=== PATIENT | male | born 1975 | race Caucasian/White ===

== ENCOUNTER 2016-08-28 07:30 | Emergency (ER) | payer MEDICARE, MEDICAID ==
[~2016-08-28 07:30] MED LIST: /DIVA50TA PO; ALBU17IN2; AUGM875T27 PO; DEPA250T3; DEPA500T; DEPA500T2; MILKSUS; PERC5TAB6 PO; PERC5TAB8; PROV90AE; SERO200T PO; ZYPR10TA
[2016-08-28] MEDS ORDERED: ACETAMINOPHEN 325 MG TAB As Ordered ONE (08:51)
--- NOTE | 2016-08-28 10:00 | EDDOCDS ---
Physician Documentation [facility] Name: Michael Patel Age: 41 yrs Sex: Male : 1975 Arrival Date: 08/28/2016 Time: 07:30 Bed TR8 Private MD: Disposition: 08/28/16 09:22 Discharged to Home/Self Care. Impression: Influenza due to other identified influenza virus - B. - Condition is Stable. - Discharge Instructions: Influenza Adult. - Medication Reconciliation form. - Follow up: Private Physician; When: Call to arrange an appointment; Reason: Wound/Symptom Recheck, Recheck today's complaints, Continuance of care. - Problem is new. - Symptoms have improved. - Notes: take tylenol as needed for pain. Historical: - Allergies: Prolixin (Epilepsy); Prozac (psychotic); - Home Meds: 1. Theraflu ExpressMax Cold Day 5-10-325 mg/15 mL oral liqd as needed (Last dose: 08/26/2016) - PMHx: Seizure Disorder; - PSHx: Cholecystectomy; Nephrectomy- Right; - Social history: Smoking status: Patient states was never smoker of tobacco. No barriers to communication noted, The patient speaks fluent Vietnamese, Speaks appropriately for age. - Family history: Not pertinent. - : The pt / caregiver states he / she is not on anticoagulants. Home medication list is obtained from the patient. - Exposure Risk Screening:: None identified. Vital Signs: 08/28 08:07 BP 136 / 75; Pulse 102; Resp 16; Temp 102.3(O); Pulse Ox 97% on R/A; Weight 165.56 kg / mlb1 365 lbs (M); Height 5 ft. 8 in. (172.72 cm) (M); Pain 8/10; 09:39 BP 131 / 80; Pulse 117; Resp 18; Temp 100.5(O); Pulse Ox 97% on R/A; Pain 8/10; dem1 08:07 Body Mass Index 55.50 (165.56 kg, 172.72 cm) mlb1 MDM: 08:39 Obtain sample by nasopharyngeal swab ordered. cc10 08:39 Acetaminophen Tablet 975 mg PO once ordered. cc10 08:40 -Influenza A&B Rapid Antigen - Nose Ordered. EDMS 09:21 Financial registration complete. mm15 09:21 -Influenza A&B Rapid Antigen - Nose Reviewed. cc10 09:43 [facility] Payment Agreement was scanned into [employer] and attached to record. mm15 Administered Medications: 08:56 Drug: Acetaminophen 975 mg [acetaminophen 325 mg tablet (3 tabs)] Route: PO; dls Signatures: Dispatcher [employer] Dayami Hanks RN RN dls Mike Rubi RN RN mlb1 Gualberto Avelar mm15 Edison Cabrales PA-C PALisbeth cc10 The chart was reviewed and I authenticate all verbal orders and agree with the evaluation and treatment provided.Attachments: 09:43 [facility] Payment Agreement mm15 MTDD
--- NOTE | 2016-08-28 10:00 | EDDOCDS ---
Nurse's Notes [facility] Name: Michael Patel Age: 41 yrs Sex: Male : 1975 Arrival Date: 08/28/2016 Time: :30 Bed TR8 Private MD: Diagnosis: Influenza due to other identified influenza virus-B Presentation: 08/28 08:04 Presenting complaint: Patient states: Body aches, fever, with N/V began six days ago. mlb1 Adult Sepsis Screening: The patient does not have new or worsening altered mentation. Patient's respiratory rate is less than 22. Systolic blood pressure is greater than 100. Patient has a qSOFA score of 0- Negative Sepsis Screen. Suicide/Homicide risk assessment- the patient denies having any suicidal and/or homicidal ideations and does not present with any other emotional, behavioral or mental health complaints. 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 Transition of care: patient was not received from another setting of care. 08:04 Acuity: CORTEZ Level 3 mlb1 08:04 Method Of Arrival: Walkin/Carried/Asstd mlb1 Triage Assessment: 08:07 General: Appears in no apparent distress, Behavior is cooperative. Pain: Location: "all mlb1 over" Pain currently is 8.5 out of 10 on a pain scale. HIV screening NA for this visit Offered previously. Respiratory: No deficits noted. GI: Reports. Historical: - Allergies: Prolixin (Epilepsy); Prozac (psychotic); - Home Meds: 1. Theraflu ExpressMax Cold Day 5-10-325 mg/15 mL oral liqd as needed (Last dose: 08/26/2016) - PMHx: Seizure Disorder; - PSHx: Cholecystectomy; Nephrectomy- Right; - Social history: Smoking status: Patient states was never smoker of tobacco. No barriers to communication noted, The patient speaks fluent Vincentian, Speaks appropriately for age. - Family history: Not pertinent. - : The pt / caregiver states he / she is not on anticoagulants. Home medication list is obtained from the patient. - Exposure Risk Screening:: None identified. Screenin:59 Screening information is obtained from the patient. Primary language is Vincentian. Fall dls risk: No risks identified. Assistance ADL's: requires no assistance with activities of daily living. Abuse/DV Screen: The patient / caregiver reports he/she is: not in a situation that causes fear, pain or injury. Nutritional screening: No deficits noted. Advance Directives: Currently, there is no health care proxy. There is no active DNR order. There is no living will. There is no Power of Communications Engineering Technician. Advance directive information has not previously been placed in an [facility] medical record. home support is adequate. Assessment: 08:57 General: Appears obese, uncomfortable, Behavior is anxious. Awake, alert, oriented. dls Skin warm and dry. Moves all extremities. Respirations unlabored. No apparent distress. The patient / caregiver is instructed regarding the plan of care and ED course. Pt states is able to tolerate po fluids and food but feels nauseated c/o mucus in throat and fever medicated pt po for fever nasal swab for influenza sent to lab.. Vital Signs: 08:07 BP 136 / 75; Pulse 102; Resp 16; Temp 102.3(O); Pulse Ox 97% on R/A; Weight 165.56 kg mlb1 (M); Height 5 ft. 8 in. (172.72 cm) (M); Pain 8/10; 09:39 BP 131 / 80; Pulse 117; Resp 18; Temp 100.5(O); Pulse Ox 97% on R/A; Pain 8/10; dem1 08:07 Body Mass Index 55.50 (165.56 kg, 172.72 cm) [facility] ED Course: 07:31 Patient visited by Sammie Dye, Reg. hs2 07:31 Patient moved to Waiting hs2 08:04 Patient visited by Mike Rubi RN. mlb1 08:04 Triage Initiated mlb1 08:10 Patient visited by Mike Rubi RN. mlb1 08:37 Patient moved to I4 / M4 mlb1 08:56 -Influenza A&B Rapid Antigen - Nose Sent. dls 08:59 Patient has correct armband on for positive identification. Bed in low position. Call dls light in reach. 09:10 Patient visited by Dayami Breen RN. dls 09:13 Edison Cabrales PA-C [facility]. cc10 09:13 Merrill Dumas MD is Attending Physician. cc10 09:18 Patient visited by Edison Cabrales PA-C. cc10 09:18 Patient visited by Edison Cabrales PA-C. cc10 09:29 No IV's were initiated during this patient's visit. No procedures done that require dls assistance. 09:40 Patient visited by Jadon Black. dem1 09:40 Patient moved to [facility] dem1 09:43 [facility] Payment Agreement was scanned into [employer] and attached to record. mm15 Administered Medications: 08:56 Drug: Acetaminophen 975 mg [acetaminophen 325 mg tablet (3 tabs)] Route: PO; dls Order Results: Lab Order: -Influenza A&B Rapid Antigen - Nose; SPEC'M 08/28/16 08:53 Test: INFLUENZA A RAPID SCR by ICA; Value: INFLUENZA A RESULTS NEGATIVE; Status: F Test: INFLUENZA A RAPID SCR by ICA; Value: Comments:; Status: F Test: INFLUENZA B RAPID SCR by ICA; Value: INFLUENZA B RESULTS POSITIVE; Abnormal: Abnormal; Status: F Test Note: ; The Influenza test is a direct rapid immunoassay for the qualitative detection of Influenza viral antigen. Cell culture (Viral Culture) testing should be considered to confirm NEGATIVE results and to assist in detecting other viruses that can provide similar clinical symptoms. Please contact the lab within 24 hours ([phone]) if confirmatory testing is desired. Outcome: 09:22 Discharge ordered by Provider. cc10 09:29 The following High Risk Discharge criteria are identified: None. Discharged to home dls ambulatory. Condition: stable. Discharge instructions given to patient, Instructed on discharge instructions, follow up and referral plans. Demonstrated understanding of instructions. No special radiology studies were completed. 09:29 Discharge Assessment: Patient awake, alert and oriented x 3. No cognitive and/or dls functional deficits noted. Patient verbalized understanding of disposition instructions. patient administered narcotics - no. The following High Risk Discharge criteria are identified: None. Discharged to home ambulatory. Property sent home with patient. 10:00 Patient left the ED. dls Signatures: Dayami Breen RN RN dls Barney, Michael B, RN RN mlb1 Jadon Black dem1 Gualberto Avelar mm15 Edison Cabrales PA-C PA-C cc10 Rick Dyeary, Reg Reg hs2 MTDD
--- NOTE | 2016-08-30 11:00 | EDDOCDS ---
Physician Documentation [facility] Name: Michael Patel Age: 41 yrs Sex: Male : 1975 Arrival Date: 08/28/2016 Time: 07:30 Bed TR8 Private MD: Disposition: 08/28/16 09:22 Discharged to Home/Self Care. Impression: Influenza due to other identified influenza virus - B. - Condition is Stable. - Discharge Instructions: Influenza Adult. - Medication Reconciliation form. - Follow up: Private Physician; When: Call to arrange an appointment; Reason: Wound/Symptom Recheck, Recheck today's complaints, Continuance of care. - Problem is new. - Symptoms have improved. - Notes: take tylenol as needed for pain. Historical: - Allergies: Prolixin (Epilepsy); Prozac (psychotic); - Home Meds: 1. Theraflu ExpressMax Cold Day 5-10-325 mg/15 mL oral liqd as needed (Last dose: 08/26/2016) - PMHx: Seizure Disorder; - PSHx: Cholecystectomy; Nephrectomy- Right; - Social history: Smoking status: Patient states was never smoker of tobacco. No barriers to communication noted, The patient speaks fluent Albanian, Speaks appropriately for age. - Family history: Not pertinent. - : The pt / caregiver states he / she is not on anticoagulants. Home medication list is obtained from the patient. - Exposure Risk Screening:: None identified. Vital Signs: 08/28 08:07 BP 136 / 75; Pulse 102; Resp 16; Temp 102.3(O); Pulse Ox 97% on R/A; Weight 165.56 kg / mlb1 365 lbs (M); Height 5 ft. 8 in. (172.72 cm) (M); Pain 8/10; 09:39 BP 131 / 80; Pulse 117; Resp 18; Temp 100.5(O); Pulse Ox 97% on R/A; Pain 8/10; dem1 08:07 Body Mass Index 55.50 (165.56 kg, 172.72 cm) mlb1 MDM: 08:39 Obtain sample by nasopharyngeal swab ordered. cc10 08:39 Acetaminophen Tablet 975 mg PO once ordered. cc10 08:40 -Influenza A&B Rapid Antigen - Nose Ordered. EDMS 09:21 Financial registration complete. mm15 09:21 -Influenza A&B Rapid Antigen - Nose Reviewed. cc10 09:43 [facility] Payment Agreement was scanned into [employer] and attached to record. mm15 16:51 T-Sheet-- Draft Copy was scanned into [employer] and attached to record. klr Administered Medications: 08:56 Drug: Acetaminophen 975 mg [acetaminophen 325 mg tablet (3 tabs)] Route: PO; dls Signatures: Dispatcher [employer] Dayami Hanks RN RN dls Mike Rubi RN RN mlb1 Gualberto Avelar mm15 Edison Cabrales, PA-C PA-C cc10 Smita Gomez klr The chart was reviewed and I authenticate all verbal orders and agree with the evaluation and treatment provided.Attachments: 09:43 [facility] Payment Agreement mm15 16:51 T-Sheet-- Draft Copy klr Chart Complete MTDD
--- NOTE | 2016-08-30 11:00 | EDDOCDS ---
Physician Documentation [facility] Name: Michael Patel Age: 41 yrs Sex: Male : 1975 Arrival Date: 08/28/2016 Time: 07:30 Bed TR8 Private MD: Disposition: 08/28/16 09:22 Discharged to Home/Self Care. Impression: Influenza due to other identified influenza virus - B. - Condition is Stable. - Discharge Instructions: Influenza Adult. - Medication Reconciliation form. - Follow up: Private Physician; When: Call to arrange an appointment; Reason: Wound/Symptom Recheck, Recheck today's complaints, Continuance of care. - Problem is new. - Symptoms have improved. - Notes: take tylenol as needed for pain. Historical: - Allergies: Prolixin (Epilepsy); Prozac (psychotic); - Home Meds: 1. Theraflu ExpressMax Cold Day 5-10-325 mg/15 mL oral liqd as needed (Last dose: 08/26/2016) - PMHx: Seizure Disorder; - PSHx: Cholecystectomy; Nephrectomy- Right; - Social history: Smoking status: Patient states was never smoker of tobacco. No barriers to communication noted, The patient speaks fluent Armenian, Speaks appropriately for age. - Family history: Not pertinent. - : The pt / caregiver states he / she is not on anticoagulants. Home medication list is obtained from the patient. - Exposure Risk Screening:: None identified. Vital Signs: 08/28 08:07 BP 136 / 75; Pulse 102; Resp 16; Temp 102.3(O); Pulse Ox 97% on R/A; Weight 165.56 kg / mlb1 365 lbs (M); Height 5 ft. 8 in. (172.72 cm) (M); Pain 8/10; 09:39 BP 131 / 80; Pulse 117; Resp 18; Temp 100.5(O); Pulse Ox 97% on R/A; Pain 8/10; dem1 08:07 Body Mass Index 55.50 (165.56 kg, 172.72 cm) mlb1 MDM: 08:39 Obtain sample by nasopharyngeal swab ordered. cc10 08:39 Acetaminophen Tablet 975 mg PO once ordered. cc10 08:40 -Influenza A&B Rapid Antigen - Nose Ordered. EDMS 09:21 Financial registration complete. mm15 09:21 -Influenza A&B Rapid Antigen - Nose Reviewed. cc10 09:43 [facility] Payment Agreement was scanned into [employer] and attached to record. mm15 16:51 T-Sheet-- Draft Copy was scanned into [employer] and attached to record. klr Administered Medications: 08:56 Drug: Acetaminophen 975 mg [acetaminophen 325 mg tablet (3 tabs)] Route: PO; dls Signatures: Dispatcher [employer] Dayami Hanks RN RN dls Mike Rubi RN RN mlb1 Gualberto Avelar mm15 Edison Cabrales, PA-C PA-C cc10 Smita Gomez klr The chart was reviewed and I authenticate all verbal orders and agree with the evaluation and treatment provided.Attachments: 09:43 [facility] Payment Agreement mm15 16:51 T-Sheet-- Draft Copy klr Chart Complete MTDD
--- NOTE | 2016-08-30 11:00 | EDDOCDS ---
Nurse's Notes [facility] Name: Michael Patel Age: 41 yrs Sex: Male : 1975 Arrival Date: 08/28/2016 Time: :30 Bed TR8 Private MD: Diagnosis: Influenza due to other identified influenza virus-B Presentation: 08/28 08:04 Presenting complaint: Patient states: Body aches, fever, with N/V began six days ago. mlb1 Adult Sepsis Screening: The patient does not have new or worsening altered mentation. Patient's respiratory rate is less than 22. Systolic blood pressure is greater than 100. Patient has a qSOFA score of 0- Negative Sepsis Screen. Suicide/Homicide risk assessment- the patient denies having any suicidal and/or homicidal ideations and does not present with any other emotional, behavioral or mental health complaints. 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 Transition of care: patient was not received from another setting of care. 08:04 Acuity: CORTEZ Level 3 mlb1 08:04 Method Of Arrival: Walkin/Carried/Asstd mlb1 Triage Assessment: 08:07 General: Appears in no apparent distress, Behavior is cooperative. Pain: Location: "all mlb1 over" Pain currently is 8.5 out of 10 on a pain scale. HIV screening NA for this visit Offered previously. Respiratory: No deficits noted. GI: Reports. Historical: - Allergies: Prolixin (Epilepsy); Prozac (psychotic); - Home Meds: 1. Theraflu ExpressMax Cold Day 5-10-325 mg/15 mL oral liqd as needed (Last dose: 08/26/2016) - PMHx: Seizure Disorder; - PSHx: Cholecystectomy; Nephrectomy- Right; - Social history: Smoking status: Patient states was never smoker of tobacco. No barriers to communication noted, The patient speaks fluent German, Speaks appropriately for age. - Family history: Not pertinent. - : The pt / caregiver states he / she is not on anticoagulants. Home medication list is obtained from the patient. - Exposure Risk Screening:: None identified. Screenin:59 Screening information is obtained from the patient. Primary language is German. Fall dls risk: No risks identified. Assistance ADL's: requires no assistance with activities of daily living. Abuse/DV Screen: The patient / caregiver reports he/she is: not in a situation that causes fear, pain or injury. Nutritional screening: No deficits noted. Advance Directives: Currently, there is no health care proxy. There is no active DNR order. There is no living will. There is no Power of Magnet Maker. Advance directive information has not previously been placed in an [facility] medical record. home support is adequate. Assessment: 08:57 General: Appears obese, uncomfortable, Behavior is anxious. Awake, alert, oriented. dls Skin warm and dry. Moves all extremities. Respirations unlabored. No apparent distress. The patient / caregiver is instructed regarding the plan of care and ED course. Pt states is able to tolerate po fluids and food but feels nauseated c/o mucus in throat and fever medicated pt po for fever nasal swab for influenza sent to lab.. Vital Signs: 08:07 BP 136 / 75; Pulse 102; Resp 16; Temp 102.3(O); Pulse Ox 97% on R/A; Weight 165.56 kg mlb1 (M); Height 5 ft. 8 in. (172.72 cm) (M); Pain 8/10; 09:39 BP 131 / 80; Pulse 117; Resp 18; Temp 100.5(O); Pulse Ox 97% on R/A; Pain 8/10; dem1 08:07 Body Mass Index 55.50 (165.56 kg, 172.72 cm) [facility] ED Course: 07:31 Patient visited by Sammie Dye, Reg. hs2 07:31 Patient moved to Waiting hs2 08:04 Patient visited by Mike Rubi RN. mlb1 08:04 Triage Initiated mlb1 08:10 Patient visited by Mike Rubi RN. mlb1 08:37 Patient moved to I4 / M4 mlb1 08:56 -Influenza A&B Rapid Antigen - Nose Sent. dls 08:59 Patient has correct armband on for positive identification. Bed in low position. Call dls light in reach. 09:10 Patient visited by Dayami Breen RN. dls 09:13 Edison Cabrales PA-C is [facility]. cc10 09:13 Merrill Dumas MD is Attending Physician. cc10 09:18 Patient visited by Edison Cabrales PA-C. cc10 09:18 Patient visited by Edison Cabrales PA-C. cc10 09:29 No IV's were initiated during this patient's visit. No procedures done that require dls assistance. 09:40 Patient visited by Jadon Black. dem1 09:40 Patient moved to [facility] dem1 09:43 [facility] Payment Agreement was scanned into [employer] and attached to record. mm15 16:51 T-Sheet-- Draft Copy was scanned into [employer] and attached to record. klr Administered Medications: 08:56 Drug: Acetaminophen 975 mg [acetaminophen 325 mg tablet (3 tabs)] Route: PO; dls Order Results: Lab Order: -Influenza A&B Rapid Antigen - Nose; SPEC'M 08/28/16 08:53 Test: INFLUENZA A RAPID SCR by ICA; Value: INFLUENZA A RESULTS NEGATIVE; Status: F Test: INFLUENZA A RAPID SCR by ICA; Value: Comments:; Status: F Test: INFLUENZA B RAPID SCR by ICA; Value: INFLUENZA B RESULTS POSITIVE; Abnormal: Abnormal; Status: F Test Note: ; The Influenza test is a direct rapid immunoassay for the qualitative detection of Influenza viral antigen. Cell culture (Viral Culture) testing should be considered to confirm NEGATIVE results and to assist in detecting other viruses that can provide similar clinical symptoms. Please contact the lab within 24 hours ([phone]) if confirmatory testing is desired. Outcome: 09:22 Discharge ordered by Provider. cc10 09:29 The following High Risk Discharge criteria are identified: None. Discharged to home dls ambulatory. Condition: stable. Discharge instructions given to patient, Instructed on discharge instructions, follow up and referral plans. Demonstrated understanding of instructions. No special radiology studies were completed. 09:29 Discharge Assessment: Patient awake, alert and oriented x 3. No cognitive and/or dls functional deficits noted. Patient verbalized understanding of disposition instructions. patient administered narcotics - no. The following High Risk Discharge criteria are identified: None. Discharged to home ambulatory. Property sent home with patient. 10:00 Patient left the ED. dls Signatures: Dayami Breen RN RN dls Mike Rubi RN RN mlb1 Jadon Black dem1 Gualberto Avelar mm15 Edison Cabrales PA-C PA-C cc10 Sammie Dye, [facility] Reg hs2 RedSmita daugherty Chart Complete SANTID
== END 2016-08-28 10:00 | disposition home or self-care (01) ==
LOC: M ED 07:30
DX: J10.1 Influenza due to other identified influenza virus with other respiratory manifestations (principal); G40.909 Epilepsy, unspecified, not intractable, without status epilepticus; Z88.8 Allergy status to other drugs, medicaments and biological substances

== ENCOUNTER → 2016-11-02 | Outpatient (REF) | payer MEDICARE, MEDICAID ==
[2016-11-02 14:30] LABS: ALBUMIN 3.4 GM/DL (3.2-5.2); ALBUMIN/GLOBULIN RATIO 0.97 (1.00-1.93); ALKALINE PHOSPHATASE 92 U/L (45-117); ALT/SGPT 59 U/L (12-78); ANION GAP 7 MEQ/L (8-16); AST/SGOT 35 U/L (15-37); BILIRUBIN,TOTAL 0.4 MG/DL (0.2-1.0); BLOOD UREA NITROGEN 11 MG/DL (7-18); CALCIUM LEVEL 8.8 MG/DL (8.5-10.1); CARBON DIOXIDE LEVEL 27 MEQ/L (21-32); CHLORIDE LEVEL 108 MEQ/L (98-107); CHOLESTEROL LEVEL 118 MG/DL (<200); CREATININE FOR GFR 0.98 MG/DL (0.70-1.30); GLOMERULAR FILTRATION RATE > 60.0 (>60); GLUCOSE, FASTING 97 MG/DL (70-105); MAGNESIUM LEVEL 2.5 MG/DL (1.8-2.4); POTASSIUM SERUM 4.4 MEQ/L (3.5-5.1); SODIUM LEVEL 142 MEQ/L (136-145); TOTAL PROTEIN 6.9 GM/DL (6.4-8.2); TRIGLYCERIDES LEVEL 90 MG/DL (<150)
== END ==
LOC: M LAB REF 12:10
PROVIDERS: ATTEND Nurse Practitioner Family
DX: Z13.220 Encounter for screening for lipoid disorders (principal); R56.9 Unspecified convulsions; Z13.228 Encounter for screening for other metabolic disorders

== ENCOUNTER 2016-12-23 23:04 | Emergency (ER) | payer MEDICARE, MEDICAID ==
[~2016-12-23] VITALS: Ht 170.2 cm; Wt 161.6 kg
[~2016-12-23 23:04] MED LIST changes: -AUGM875T27 PO; +AUGM875T28 PO; +PERC5TAB12 PO; -PERC5TAB6 PO
[2016-12-23 23:05] VITALS: BP 106/66
[2016-12-24] MEDS ORDERED: ALBU17IN2 INH (00:08)
[2016-12-24] MEDS ORDERED: DOXY100C37 PO (00:08)
[2016-12-24] MEDS ORDERED: GUAISYP4 PO (00:08)
[2016-12-24] MEDS ORDERED: guaiFENesin/CODEINE SYRUP 5 ML UDC PO ONE (00:15)
[2016-12-24] MEDS ORDERED: DOXYCYCLINE HYCLATE 100 MG TAB PO ONE (00:15)
== END 2016-12-24 00:40 | disposition home or self-care (01) ==
LOC: M ED 12-24 00:28
DX: J20.9 Acute bronchitis, unspecified (principal); M54.9 Dorsalgia, unspecified; Z90.5 Acquired absence of kidney; Z88.0 Allergy status to penicillin; Z88.8 Allergy status to other drugs, medicaments and biological substances; Z91.040 Latex allergy status

== ENCOUNTER 2017-09-14 04:34 | Emergency (ER) | payer MEDICARE, MEDICAID ==
[2017-09-14 06:05] LABS: INFLUENZA A AMPLIFICATION NEGATIVE (NEGATIVE); INFLUENZA B AMPLIFICATION NEGATIVE (NEGATIVE)
== END 2017-09-14 07:06 | disposition home or self-care (01) ==
LOC: M ED 04:34
DX: J40 Bronchitis, not specified as acute or chronic (principal); M79.1 Myalgia; K21.9 Gastro-esophageal reflux disease without esophagitis; F31.9 Bipolar disorder, unspecified; M54.9 Dorsalgia, unspecified; G89.29 Other chronic pain; Z88.0 Allergy status to penicillin; Z88.8 Allergy status to other drugs, medicaments and biological substances; Z91.040 Latex allergy status; Z79.899 Other long term (current) drug therapy
CPT/HCPCS: 71046

== ENCOUNTER 2021-05-24 13:56 | Emergency (ER) | payer MEDICARE, MEDICAID, OTHER ==
[~2021-05-24] VITALS: Ht 170.2 cm; Wt 165.0 kg
[2021-05-24 13:56] VITALS: BP 133/70
[~2021-05-24 13:56] MED LIST changes: -/DIVA50TA PO; +ALBU17IN2 INH; +DEPA1TAB3 PO; +DOXY-443 PO; +GUAISYP4 PO; +PRED20TA PO
--- OUTSIDE RECORDS SUMMARY | 2021-05-24 14:02 | CCD ---
Author Author [facility] Organization [facility] Address Unknown Phone Unavailable Support Name Relationship Address Phone Denis WILDERAlise Next Of Kin [address] [place] [address] [address] [place] [address] Bianka ALCANTARA, Andie Next Of Kin [address] [place] [address] MONROE QUARLES [place] [address] DISABLED Next Of Kin Unknown Unavailable MONROE HIGGINS Next Of Devonte [place] [address] Re-disclosure Warning The records that you are about to access may contain information from federally-assisted alcohol or drug abuse programs. If such information is present, then the following federally mandated warning applies: This information has been disclosed to you from records protected by federal confidentiality rules (42 CFR part 2). The federal rules prohibit you from making any further disclosure of this information unless further disclosure is expressly permitted by the written consent of the person to whom it pertains or as otherwise permitted by 42 CFR part 2. A general authorization for the release of medical or other information is NOT sufficient for this purpose. The Federal rules restrict any use of the information to criminally investigate or prosecute any alcohol or drug abuse patient.The records that you are about to access may contain highly sensitive health information, the redisclosure of which is protected by Article 27-F of the [facility] Public Health law. If you continue you may have access to information: Regarding HIV / AIDS; Provided by facilities licensed or operated by the [facility] Office of Mental Health; or Provided by the [facility] Office for People With Developmental Disabilities. If such information is present, then the following [facility] mandated warning applies: This information has been disclosed to you from confidential records which are protected by state law. State law prohibits you from making any further disclosure of this information without the specific written consent of the person to whom it pertains, or as otherwise permitted by law. Any unauthorized further disclosure in violation of state law may result in a fine or assisted sentence or both. A general authorization for the release of medical or other information is NOT sufficient authorization for further disc losure. Medications No Information Insurance Providers Payer name Policy type / Coverage type Policy ID Covered green party ID Covered green party's relationship to diaz Policy Diaz Plan Information MEDICARE [id number] SP [id number] 2C1 Medicare P [id number] S [id number] 2C1 Medicaid S [id number] S [id number] Medicare P [id number] S [id number] Medicaid S [id number] S [id number] Medicaid S [id number] S [id number] Medicaid S [id number] S [id number] Medicaid S [id number] S [id number] Medicaid Dental P [id number] S [id number] MEDICAID [id number] SP [id number] MEDICAID M [id number] S [id number] MEDICARE C [id number] S [id number] 2C1 Medicare P [id number] S [id number] [facility] [id number] SP [id number] [facility] UNAVAILABLE SP UNAVAILABLE [id number] [address] [facility] MEDICAID [id number] SP [id number] Problems, Conditions, and Diagnoses No Information Surgeries/Procedures No Information Results No Information Social History No Information
[2021-05-24] MEDS ORDERED: BOOSTRIX/ADACEL VACCINE (DIPHTH/PERTUSS/ACELL/TETANUS) 0.5ML SYR IM ONE (15:05)
--- OUTSIDE RECORDS SUMMARY | 2021-05-24 15:46 | CCD ---
Author Author [facility] Organization [facility] Address Unknown Phone Unavailable Support Name Relationship Address Phone Denis HDZAlise Next Of Kin [address] [place] [address] [address] [place] [address] Bianka ALCANTARA, Andie Next Of Kin [address] [place] [address] [place] [address] DISABLED Next Of Kin Unknown Unavailable [place]ROE HIGGINS Next [place] Devonte [place] [address] Re-disclosure Warning The records that you are [...] is protected by Article 27-F of the [facility] Public Health law. If you continue you may have access to information: Regarding HIV / AIDS; Provided by facilities licensed or operated by the [facility] Office of Mental Health; or Provided by the [facility] Office for People With Developmental Disabilities. If such information is present, then the following [facility] mandated warning applies: This information has been [...] law may result in a fine or prison sentence or both. A general authorization for the release of medical or other information is NOT sufficient authorization for further disc losure. Medications No Information Insurance Providers Payer name Policy type / Coverage type Policy ID Covered democrat ID Covered democrat's relationship to diaz Policy Diaz Plan Information MEDICARE [id number] SP [id number] Medicare P [id number] S [id number] Medicaid S [id number] Medicare P [id number] S [id number] Medicaid S [id number] Medicaid S [id number] S [id number] Medicaid S [id number] Medicaid S [id number] Medicaid Dental P [id number] SP [id number] MEDICAID M [id number] S [id number] MEDICARE C [id number] Medicare P [id number] S [id number] A [facility] MUTUAL [id number] SP [id number] [facility] UNAVAILABLE SP UNAVAILABLE [id number] [facility] MEDICAID [id number] SP [id number] J Problems, Conditions, and Diagnoses No Information Surgeries/Procedures No Information Results No Information Social History No Information
[2021-05-24] MEDS ORDERED: metroNIDAZOLE (FLAGYL) 500MG TABLET PO ONE (15:55)
[2021-05-24] MEDS ORDERED: DOXYCYCLINE HYCLATE 100MG TABLET PO ONE (15:55)
--- NOTE | 2021-05-24 16:00 | REP ---
INDICATION: cat bite index finger at base COMPARISON: None. TECHNIQUE: AP, lateral, bilateral oblique views right hand. FINDINGS: The osseous structures and joint spaces are intact and normal. There is no evidence for acute fracture or dislocation. Mild swelling cannot be excluded. No subcutaneous emphysema or radiodense foreign body. IMPRESSION: No subcutaneous emphysema or foreign body. No acute fracture or dislocation. <Electronically signed by Rafiq Solomon > 05/24/21 [id number]
[2021-05-24] MEDS ORDERED: METR-265 PO (16:04)
[2021-05-24] MEDS ORDERED: DOXY-443 PO (16:04)
== END 2021-05-24 16:34 | disposition home or self-care (01) ==
LOC: M ED 13:56
DX: S60.470A Other superficial bite of right index finger, initial encounter (principal); W55.01XA Bitten by cat, initial encounter; Y92.9 Unspecified place or not applicable; Y93.89 Activity, other specified; Y99.9 Unspecified external cause status; Z88.0 Allergy status to penicillin; Z88.8 Allergy status to other drugs, medicaments and biological substances; Z91.040 Latex allergy status

== ENCOUNTER → 2022-08-20 | Outpatient (REF) | payer MEDICARE, MEDICAID, OTHER ==
[~2022-08-20] MED LIST changes: +METR-265 PO
[2022-08-20 17:01] LABS: ALBUMIN 3.5 G/DL (3.2-5.2); ALKALINE PHOSPHATASE 106 U/L (46-116); ALT/SGPT 40 U/L (7.0-40); AST/SGOT 26 U/L (<34); BILIRUBIN,TOTAL 0.5 MG/DL (0.3-1.2); BLOOD UREA NITROGEN 17 MG/DL (9-23); CARBON DIOXIDE LEVEL 28 MMOL/L (20-31); CHLORIDE LEVEL 104 MMOL/L (98-107); CHOLESTEROL LEVEL 131 MG/DL (<200); CHOLESTEROL RISK RATIO 2.38 (<5); CREATININE FOR GFR 1.06 MG/DL (0.70-1.30); GLOMERULAR FILTRATION RATE > 60.0 (>60); GLUCOSE, FASTING 105 MG/DL (60-100); HDL CHOLESTEROL 54.9 MG/DL (>40); LDL CHOLESTEROL 64.9 MG/DL (<100); NON-HDL-C 76 MG/DL; POTASSIUM SERUM 4.4 MMOL/L (3.5-5.1); SODIUM LEVEL 139 MMOL/L (136-145); TOTAL PROTEIN 7.1 G/DL (5.7-8.2); TRIGLYCERIDES LEVEL 56 MG/DL (<150)
[2022-08-20 17:06] LABS: HEMOGLOBIN A1c 5.7 % (4.0-6.0)
== END ==
LOC: M LAB REF 16:00
PROVIDERS: ATTEND Pediatrics
DX: E66.01 Morbid (severe) obesity due to excess calories (principal)

== ENCOUNTER → 2022-09-23 | Outpatient (CLI) | payer MEDICARE, MEDICAID, OTHER | LOC: M SOG 08:47 | PROVIDERS: ATTEND Physician Assistant | DX: M25.541 Pain in joints of right hand (principal); Z53.9 Procedure and treatment not carried out, unspecified reason ==

== ENCOUNTER → 2022-10-12 | Outpatient (CLI) | payer MEDICARE, MEDICAID, OTHER | LOC: M SOG 08:13 | PROVIDERS: ATTEND Physician Assistant | DX: M25.541 Pain in joints of right hand (principal) ==

== ENCOUNTER → 2024-01-11 | Outpatient (REF) | payer MEDICARE, MEDICAID, OTHER ==
[~2024-01-11] MED LIST changes: +DOXY-323 PO; -DOXY-443 PO
[2024-01-11 17:37] LABS: THYROID STIMULATING HORMONE 1.937 uIU/ML (0.55-4.78)
[2024-01-11 17:38] LABS: BLOOD UREA NITROGEN 16 MG/DL (9-23); CALCIUM LEVEL 8.8 MG/DL (8.5-10.1); CARBON DIOXIDE LEVEL 30 MMOL/L (20-31); CHLORIDE LEVEL 106 MMOL/L (98-107); CREATININE FOR GFR 0.88 MG/DL (0.70-1.30); GLOMERULAR FILTRATION RATE > 60.0 (>60); GLUCOSE, FASTING 98 MG/DL (60-100); POTASSIUM SERUM 4.1 MMOL/L (3.5-5.1); SODIUM LEVEL 140 MMOL/L (136-145)
== END ==
LOC: M LAB REF 16:43
PROVIDERS: ATTEND Pediatrics
DX: E66.01 Morbid (severe) obesity due to excess calories (principal); R60.0 Localized edema